=== PATIENT | male | born 1985 | race Caucasian/White ===

== ENCOUNTER 2022-12-08 20:29 | Emergency (ER) | payer OTHER ==
[~2022-12-08] VITALS: Ht 182.9 cm; Wt 82.0 kg
[2022-12-08 20:33] VITALS: BP 134/77
== END 2022-12-08 21:44 ==
LOC: ER 20:29 → EDBD 20:29 → ER 21:44
DX: S80.811A Abrasion, right lower leg, initial encounter (principal); W18.30XA Fall on same level, unspecified, initial encounter; Y93.89 Activity, other specified; Y92.89 Other specified places as the place of occurrence of the external cause; Y99.8 Other external cause status
CPT/HCPCS: 99283

== ENCOUNTER 2023-08-26 18:10 | Emergency (ER) | payer MEDICAID, OTHER ==
[~2023-08-26] VITALS: Ht 182.9 cm; Wt 86.0 kg
[2023-08-26 18:25] VITALS: TEMP 96.9; O2SAT 98
[2023-08-26] MEDS ORDERED: ONDANSETRON HCL 4MG/2ML INJ IV STA (18:26)
[2023-08-26] MEDS ORDERED: MORPHINE SULFATE 4 MG/ML CPJ (NOT FOR IM USE) IV STA (18:26)
[2023-08-26 18:46] LABS: BASOPHILS % 0.7 % (0.0-2.0); EOSINOPHILS % 0.5 % (0.0-5.0); HEMATOCRIT. 45.2 % (42.0-52.0); HEMOGLOBIN. 15.7 g/dL (14.0-18.0); LYMPHOCYTES % 13.2 % (20.0-50.0); MEAN CORPUSCULAR HEMOGLOBIN 31.7 pg (28.0-32.0); MEAN CORPUSCULAR HGB CONC 34.7 g/dL (31.0-37.0); MEAN CORPUSCULAR VOLUME 91.3 fL (80.0-94.0); MONOCYTES % 6.2 % (2.0-8.0); NEUTROPHILS % 79.4 % (40.0-76.0); PLATELET 249 x1000/uL (130-400); RED BLOOD CELL COUNT 4.95 mill/uL (4.7-6.1); RED CELL DISTRIBUTION WIDTH 13.4 % (11.6-14.6); WHITE BLOOD COUNT 10.4 x1000/uL (4.5-11.0)
[2023-08-26 18:56] LABS: PROTHROMBIN TIME 11.2 sec (9.6-11.0)
[2023-08-26 18:59] LABS: CLARITY URINE TURBID (CLEAR); COLOR URINE ORANGE (YELLOW); GLUCOSE URINE TRACE (NEGATIVE); KETONES URINE TRACE (NEGATIVE); LEUKOCYTE ESTERASE URINE TRACE (NEGATIVE); NITRITE URINE NEGATIVE (NEGATIVE); OCCULT BLOOD URINE 3+ (NEGATIVE); PH URINE 8.5 (4.5-8.0); PROTEIN URINE 1+ (NEGATIVE); SPECIFIC GRAVITY URINE 1.019 (1.005-1.030)
[2023-08-26 19:00] LABS: ALANINE AMINOTRANSFERASE 133 IU/L (10-49); ALBUMIN 3.8 g/dL (3.2-4.8); ASPARTATE AMINOTRANSFERASE 43 IU/L (<34); BILIRUBIN TOTAL 0.7 mg/dL (0.1-1.0); CALCIUM 8.9 mg/dL (8.7-10.4); CARBON DIOXIDE 27 mEq/L (21-32); CHLORIDE 107 mEq/L (98-107); GLUCOSE 207 mg/dL (70-105); POTASSIUM 3.7 mEq/L (3.5-5.1); PROTEIN TOTAL 7.4 g/dL (6.0-8.3); SODIUM 138 mEq/L (136-145); UREA NITROGEN BLOOD 6 mg/dL (9-23)
[2023-08-26 19:05] LABS: ETHANOL BLOOD < 10 mg/dL (<10)
[2023-08-26] MEDS ORDERED: KETOROLAC 30MG/ML VIAL IV NR (19:15)
[2023-08-26 19:29] VITALS: BP 134/98; RESP 18
[2023-08-26 19:51] LABS: *AMPHETAMINES SCREEN URINE PRESUMPTIVE POSITIVE (NEGATIVE); *BARBITURATES SCREEN URINE NEGATIVE (NEGATIVE); *BENZODIAZEPINES SCREEN URINE NEGATIVE (NEGATIVE); *COCAINE SCREEN URINE NEGATIVE (NEGATIVE); CANNABINOID URINE SCREEN NEGATIVE (NEGATIVE); ECSTASY MDMA SCREEN URINE NEGATIVE (NEGATIVE); METHADONE URINE SCREEN Neg (NEGATIVE); OPIATES URINE SCREEN NEGATIVE (NEGATIVE); PHENCYCLIDINE URINE SCREEN PRESUMTIVE POSITIVE (NEGATIVE)
[2023-08-26 19:55] LABS: BACTERIA URINE TRACE; RBC URINE TNTC /hpf (0-2); SQUAMOUS EPITHELIAL CELL URINE NONE SEEN /lpf (RARE/1+)
[2023-08-26 19:56] LABS: AMORPHOUS SEDIMENT URINE 3+ /lpf
[2023-08-26] MEDS ORDERED: TAMSULOSIN HCL 0.4MG SR CAPSULE PO NR (20:15)
[2023-08-26] MEDS ORDERED: CEPHALEXIN 250MG CAPSULE PO NR (20:15)
[2023-08-26 21:23] VITALS: PULSE 68
[2023-08-26] MEDS ORDERED: TOPUD MT (22:43)
[2023-08-26] MEDS ORDERED: IBUP-2030 MT (22:43)
[2023-08-26] MEDS ORDERED: CEPH500T MT (22:43)
[2023-08-26] MEDS ORDERED: TAMS-11 MT (22:43)
== END 2023-08-26 23:03 | disposition home or self-care (01) ==
LOC: ER 18:10
DX: N20.0 Calculus of kidney (principal)
CPT/HCPCS: 80053; 80305; 81003; 80320; 83605; 83690; 85025; 85610; 36415; 74176; 96374; 96375; 99285; J1885; J2405; J2270; G0480